=== PATIENT | male | born 1990 | race African-American/Black ===

== ENCOUNTER 2018-01-28 21:19 | Emergency (ER) | payer SELFPAY ==
[2018-01-28] MEDS ORDERED: BENZONATATE 100 MG CAPSULE PO ONE (22:55)
[2018-01-28] MEDS ORDERED: PREDNISONE 20 MG TABLET PO ONE (22:55)
--- NOTE | 2018-01-28 23:01 | ER Document Report ---
HPI - HPI Time Seen by Provider: 01/28/18 22:33 Pain Level: 4 Context: Patient is a 27-year-old male that comes to the emergency department for chief complaint of persistent cough for the past 3-4 days. He states he has had coughing episodes where he has started having pain in his neck, he also reports intermittent headaches. He denies current headache. He denies any current symptoms other than occasional cough. Symptoms worse at night. Denies fever. He is a smoker, denies any medications or medical diagnoses. Denies street drugs. - EENT EENT: REPORTS: Sore Throat - NEURO Neurology: REPORTS: Headache. DENIES: Weakness - RESPIRATORY Respiratory: REPORTS: Coughing - GASTROINTESTINAL Gastrointestinal: REPORTS: Abdominal Pain Past Medical History - General Information source: Patient - Social History Smoking Status: Current Every Day Smoker Smoking Education Provided: Yes - <3 min Frequency of alcohol use: None Drug Abuse: None Lives with: Family Family History: Reviewed & Not Pertinent Patient has suicidal ideation: No Patient has homicidal ideation: No - Medical History Medical History: Negative Renal/ Medical History: Denies: Hx Peritoneal Dialysis Surgical Hx: Negative - Immunizations Immunizations up to date: Yes Hx Diphtheria, Pertussis, Tetanus Vaccination: Yes Vertical Provider Document - CONSTITUTIONAL General Appearance: WD/WN, No Apparent Distress - INFECTION CONTROL TRAVEL OUTSIDE OF THE [place] IN LAST 30 DAYS: No - HEENT HEENT: Atraumatic, Normal ENT Exam, Normocephalic - NECK Neck: Normal Inspection - RESPIRATORY Respiratory: Breath Sounds Normal, No Respiratory Distress, Other - Occasional mild congested cough episodes. negative: Wheezing - CARDIOVASCULAR Cardiovascular: Regular Rate, Regular Rhythm Pulses: Bounding: Brachial - GI/ABDOMEN Gastrointestinal: Abdomen Soft, Abdomen Non-Tender - BACK Back: negative: Normal Inspection - Tenderness over the bilateral paracervical musculature, no midline tenderness. No saddle anesthesia, no signs of trauma. Normal upper and lower extremity range of motion, normal strength, normal distal neurovascular exam. - MUSCULOSKELETAL/EXTREMETIES Musculoskeletal/Extremeties: MASHELL, FROM, Non-Tender - NEURO Level of Consciousness: Awake, Alert, Appropriate - DERM Integumentary: Warm, Dry, No Rash Course - Re-evaluation Re-evalutation: Patient does have tenderness over the bilateral paracervical muscles with pain moving his head laterally, however he has no current headache, reports pain after coughing episodes, appears to be some degree of paracervical muscular strain. Because he does not have a current headache I do not suspect vertebral dissection. Normal neurologic exam. He is clear lungs, he has occasional congested cough on my exam but no coughing fits, hypoxia, or respiratory distress. He denies any current shortness of breath. Requesting treatment for cold symptoms and neck pain. Discussed smoking cessation, started on prednisone , provided with Flexeril, Tessalon. Provide with work-release. Discussed return precautions. Patient states satisfaction and agreement. - Vital Signs Vital signs: Temp Pulse Resp BP Pulse Ox 97.4 F 79 18 149/79 H 96 01/28/18 21:26 01/28/18 21:26 01/28/18 21:26 01/28/18 21:26 01/28/18 21:26 Discharge - Discharge Clinical Impression: Cough, Neck pain Upper respiratory infection Qualifiers: URI type: unspecified URI Qualified Code(s): J06.9 - Acute upper respiratory infection, unspecified Condition: Stable Disposition: HOME, SELF-CARE Additional Instructions: Take NyQuil tonight when you get home. Your evaluation is consistent with viral bronchitis. You also appear to have paracervical neck muscle strain which has caused you intermittent tension headaches. Take prednisone as prescribed, take Flexeril muscle relaxer as prescribed (recommend taking this in the evening because this can make you very drowsy). Take Tessalon for cough, you can take [id number] medication such as Flonase nasal spray, Sudafed, etc. as well. Drink plenty of fluids and rest. Stop smoking. Follow-up with primary care. Return if you worsen including fever, difficulty breathing, or any other concerning or worsening symptoms. Prescriptions: Benzonatate [Tessalon Perle 100 mg Capsule] 100 mg PO Q8HP PRN #20 cap PRN Reason: Cyclobenzaprine HCl [Flexeril 5 mg Tablet] 1 - 2 tab PO TID PRN #15 tablet PRN Reason: Prednisone [Deltasone 20 mg Tablet] 2 tab PO DAILY 5 Days #10 tablet Forms: Return to Work
[2018-01-28 23:10] VITALS: BP 120/71
== END 2018-01-28 23:10 | disposition home or self-care (01) ==
LOC: ER 21:19
DX: J06.9 Acute upper respiratory infection, unspecified (principal); M54.2 Cervicalgia; R51 Headache; F17.200 Nicotine dependence, unspecified, uncomplicated
CPT/HCPCS: 99283; J7512